=== PATIENT | female | born 1985 | race American Indian/Alaskan Native ===

== ENCOUNTER 2019-09-29 12:36 | Emergency (ER) | payer SELFPAY ==
--- NOTE | 2019-09-29 13:00 | Event Note ---
ED Screening Note ED Screening Note: 34 yo female who is 6 weeks presents with lightheadedness, chest pain and shortness of breath. This initial assessment/diagnostic orders/clinical plan/treatment(s) is/are subject to change based on patients health status, clinical progression and re- assessment by fellow clinical providers in the ED. Further treatment and workup at subsequent clinical providers discretion. Patient/guardian urged not to elope from the ED as their condition may be serious if not clinically assessed and managed. Initial orders include: ekg labs CXR v/q scan
--- NOTE | 2019-09-29 13:35 | XRay Report ---
CHEST 2 VIEWS INDICATION: chest pain shortness of breath. COMPARISON: Chest x-ray from 01/23/2015 FINDINGS: Support devices: None. Heart: Within normal limits. Lungs/pleura: No acute air space or interstitial disease. No pneumothorax. Additional findings: None. IMPRESSION: 1. No acute findings. Signer Name: Tyler Leary MD Signed: 09/29/2019 1:30 PM Workstation Name: [id number]
[2019-09-29 13:44] LABS: Basophils % (Auto) 0.6 % (0.0-1.8); Eosinophils # (Auto) 0.1 K/mm3 (0.0-0.4); Eosinophils % (Auto) 1.9 % (0.0-4.3); Hemoglobin 11.3 gm/dl (10.1-14.3); Lymphocytes % (Auto) 17.8 % (13.4-35.0); Mean Corpuscular HGB Conc 32 % (30-34); Mean Corpuscular Volume 71 fl (79-97); Monocytes # (Auto) 0.5 K/mm3 (0.0-0.8); Monocytes % (Auto) 9.3 % (0.0-7.3); Platelet Count 236 K/mm3 (140-440); Red Blood Count 4.95 M/mm3 (3.65-5.03); Red Cell Distribution Width 14.6 % (13.2-15.2)
[2019-09-29 14:24] LABS: BUN/Creatinine Ratio 12; Blood Urea Nitrogen 11 mg/dL (7-17); Calcium 9.4 mg/dL (8.4-10.2); Hemolysis Index 8
--- NOTE | 2019-09-29 15:16 | Nuclear Medicine Report ---
PERFUSION PULMONARY SCINTIGRAPHY HISTORY: , chest pain, shortness of breath COMPARISON: 09/29/2019 chest radiograph. TECHNIQUE: Tc-99m-MAA was then injected. Only perfusion images were obtained at the request of the or dering clinician. RADIOPHARMACEUTICAL: 3.5 mCi of Tc-99m-MAA injected FINDINGS: Perfusion images show no photopenic defect to suggest the presence of pulmonary embolism. IMPRESSION: Low probability for pulmonary embolism. Signer Name: Rome Heaton MD Signed: 09/29/2019 3:11 PM Workstation Name: [id number]
--- NOTE | 2019-09-29 18:01 | Emergency Department Report ---
ED Chest Pain HPI - General Chief Complaint: Chest Pain Stated Complaint: CHEST PAIN, SOB UPPER SHOULDER PAIN Time Seen by Provider: 09/29/19 17:51 Source: patient Mode of arrival: Ambulatory Limitations: No Limitations - History of Present Illness Initial Comments: Patient is a 34-year-old female that presents to the emergency room with complaints of chest pain, shortness of breath and dizziness. Patient states her symptoms started last night approximately 8 PM. Patient states her symptoms are intermittent. Patient states that her symptoms are worse after eating. Patient states she also has a history of anxiety. Patient states her chest pain has resolved at this point. Patient states when she was in triage was a 4 out of 10. Patient states she is not having any pain or symptoms at this time. Patient states her dizziness is resolved patient states shortness of breath at all. Patient states that her symptoms are better with rest and worse with movement and eating. Patient states she is 6 weeks . 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 Patient states she is a A0. Patient states she had preeclampsia with her previous . Patient states she also history of hypertension she is taking labetalol. Patient states her blood pressure is controlled with labetalol. Patient states that she has no problems taking labetalol. MD Complaint: chest pain -: Sudden Onset: after eating Severity scale (0 -10): 0 Quality: heaviness Consistency: now resolved Improves With: rest Worsens With: eating, movement Context: other re: denies: nausea, vomting, diaphoresis, dyspnea, sense of impending doom Other Symptoms: acid taste in mouth, burping. denies: cough, fever, syncope, rash, leg swelling, palpitations Treatments Prior to Arrival: none Aspirin use within the Past 7 Days: (0) No - Related Data On Oral Contraceptives: No Home Medications Medication Instructions Recorded Confirmed Last Taken Valacyclovir HCl [Valtrex] 1 tab PO QDAY 01/16/15 01/23/15 01/16/15 10:00 Previous Rx's Medication Instructions Recorded Last Taken Type Acetaminophen/Codeine [Tylenol #3] 1 tab PO Q4HR PRN #30 tablet 01/18/15 01/23/15 Rx Ferrous Sulfate [Feosol 325 MG tab] 325 mg PO BID #60 tablet 01/18/15 01/23/15 Rx Ibuprofen [Motrin 600 MG tab] 600 mg PO Q6HR PRN #30 tablet 01/18/15 Unknown Rx labetaloL [Labetalol 200mg TAB] 200 mg PO BID #60 tablet 01/25/15 Unknown Rx Famotidine [Pepcid] 20 mg PO BID #20 tablet 09/29/19 Unknown Rx Allergies Allergy/AdvReac Type Severity Reaction Status Date / Time No Known Allergies Allergy Verified 01/17/15 00:14 Heart Score - HEART Score History: Slightly suspicious EKG: Normal Age: < 45 Risk factors: No known risk factors Troponin: < normal limit HEART Score: 0 ED Review of Systems ROS: Stated complaint: CHEST PAIN, SOB UPPER SHOULDER PAIN Other details as noted in HPI Constitutional: denies: chills, fever Eyes: denies: eye pain, eye discharge, vision change ENT: denies: ear pain, throat pain Respiratory: shortness of breath. denies: cough, wheezing Cardiovascular: chest pain. denies: palpitations Endocrine: no symptoms reported Gastrointestinal: denies: abdominal pain, nausea, diarrhea Genitourinary: denies: urgency, dysuria, discharge Musculoskeletal: denies: back pain, joint swelling, arthralgia Skin: denies: rash, lesions Neurological: denies: headache, weakness, paresthesias Psychiatric: denies: anxiety, depression Hematological/Lymphatic: denies: easy bleeding, easy bruising ED Past Medical Hx - Past Medical History Previous Medical History?: Yes Hx Hypertension: Yes Hx Congestive Heart Failure: No Hx Diabetes: No Hx Deep Vein Thrombosis: No Hx Renal Disease: No Hx Sickle Cell Disease: No Hx Seizures: No Hx Asthma: No Hx COPD: No Hx HIV: No - Surgical History Past Surgical History?: No - Family History Family history: no significant - Social History Smoking Status: Never Smoker Substance Use Type: Alcohol - Medications Home Medications: Home Medications Medication Instructions Recorded Confirmed Last Taken Type Valacyclovir HCl [Valtrex] 1 tab PO QDAY 01/16/15 01/23/15 01/16/15 10:00 History Acetaminophen/Codeine [Tylenol #3] 1 tab PO Q4HR PRN #30 tablet 01/18/15 01/23/15 01/23/15 Rx Ferrous Sulfate [Feosol 325 MG tab] 325 mg PO BID #60 tablet 01/18/15 01/23/15 01/23/15 Rx Ibuprofen [Motrin 600 MG tab] 600 mg PO Q6HR PRN #30 tablet 01/18/15 01/23/15 Unknown Rx labetaloL [Labetalol 200mg TAB] 200 mg PO BID #60 tablet 01/25/15 Unknown Rx Famotidine [Pepcid] 20 mg PO BID #20 tablet 09/29/19 Unknown Rx ED Physical Exam - General Limitations: No Limitations General appearance: alert, in no apparent distress - Head Head exam: Present: atraumatic, normocephalic - Eye Eye exam: Present: normal appearance - ENT ENT exam: Present: mucous membranes moist - Neck Neck exam: Present: normal inspection - Respiratory Respiratory exam: Present: normal lung sounds bilaterally. Absent: respiratory distress, wheezes, rales, rhonchi, stridor, chest wall tenderness, accessory muscle use - Cardiovascular Cardiovascular Exam: Present: regular rate, normal rhythm. Absent: systolic murmur, diastolic murmur, rubs, gallop - GI/Abdominal GI/Abdominal exam: Present: soft, normal bowel sounds - Extremities Exam Extremities exam: Present: normal inspection - Back Exam Back exam: Present: normal inspection - Neurological Exam Neurological exam: Present: alert, oriented X3 - Psychiatric Psychiatric exam: Present: normal affect, normal mood - Skin Skin exam: Present: warm, dry, intact, normal color. Absent: rash ED Course Vital Signs 09/29/19 09/29/19 12:56 18:58 Temperature 98.6 F Pulse Rate 70 73 Respiratory 18 19 Rate Blood Pressure 135/95 Blood Pressure 137/101 [Left] O2 Sat by Pulse 99 100 Oximetry - Reevaluation(s) Reevaluation #1: Discussed all results the patient. Discussed plan of care outpatient. Patient agrees with plan of care. Patient is stable for discharge patient was discharged home. Patient given discharge instructions. Patient voiced understanding of discharge instructions. 09/29/19 18:07 NATALIYA score - Nataliya Score Age > 65: (0) No Aspirin use within the Past 7 Days: (0) No 3 or more CAD Risk Factors: (0) No 2 or more Angina events in past 24 hrs: (0) No Known CAD with more than 50% Stenosis: (0) No Elevated Cardiac Markers: (0) No ST Deviation Greater than 0.5mm: (0) No NATALIYA Score: 0 ED Medical Decision Making - Lab Data Result diagrams: 09/29/19 13:24 01/29/20 13:24 - EKG Data -: EKG Interpreted by Me EKG shows normal: sinus rhythm, axis, intervals, QRS complexes, ST-T waves Rate: normal - Radiology Data Radiology results: report reviewed, image reviewed interpreted by me: CHEST 2 VIEWS 1. No acute abnormality of the chest. PERFUSION PULMONARY SCINTIGRAPHY HISTORY: , chest pain, shortness of breath COMPARISON: 09/29/2019 chest radiograph. TECHNIQUE: Tc-99m-MAA was then injected. Only perfusion images were obtained at the request of the ordering clinician. RADIOPHARMACEUTICAL: 3.5 mCi of Tc-99m-MAA injected FINDINGS: Perfusion images show no photopenic defect to suggest the presence of pulmonary embolism. IMPRESSION: Low probability for pulmonary embolism. - Medical Decision Making Patient is a 34-year-old female Emergency with complaints of chest pain or sh ortness of breath and dizziness. Patient had a PE study and was negative. Patient had chest x-ray which shows no acute findings. Patient's symptoms are consistent with gastritis since her symptoms are present after eating.. Patient's labs unremarkable. Patient instructed to a vitamin. Patient struck the follow up with her primary care and her [employer] PIECE REPAIRER. Patient stable for discharge impression be discharged home. - Differential Diagnosis gastritis, anxiety, chest pain, shortness of breath, PE Critical care attestation.: If time is entered above; I have spent that time in minutes in the direct care of this critically ill patient, excluding procedure time. ED Disposition Clinical Impression: Shortness of breath, Dizziness, GERD without esophagitis Chest pain Qualifiers: Chest pain type: unspecified Qualified Code(s): R07.9 - Chest pain, unspecified Disposition: DC-01 TO HOME OR SELFCARE Is pt being admited?: No Does the pt Need Aspirin: No Condition: Stable Instructions: Chest Pain (ED), Morning Sickness (ED), (ED), Diet for Ulcers and Gastritis (ED), Gastroesophageal Reflux Disease (ED) Additional Instructions: Patient to follow up with primary care in 2-3 days. Patient to follow up with [employer] PIECE REPAIRER in 2-3 days. Patient to return to your condition worsens, changes or new symptoms arise. Patient to increase water. Patient to rest. Patient to take a vitamin. Patient to continue her blood pressure medications. Patient to eat a reflux diet. Prescriptions: Famotidine [Pepcid] 20 mg PO BID #20 tablet Referrals: NICHOLAS ARTHUR MD [Primary Care Provider] - 3-5 Days Time of Disposition: 18:39
[2019-09-29 19:04] VITALS: BP 137/101
== END 2019-09-29 19:14 | disposition home or self-care (01) ==
LOC: ED 12:36
DX: R06.02 Shortness of breath (principal); R42 Dizziness and giddiness; K21.9 Gastro-esophageal reflux disease without esophagitis; R07.89 Other chest pain; I10 Essential (primary) hypertension; Z79.1 Long term (current) use of non-steroidal anti-inflammatories (NSAID); Z79.899 Other long term (current) drug therapy
CPT/HCPCS: 36415; 71046; 78580; 80048; 85025; 93005; 93010; 99284; A9540

== ENCOUNTER 2020-03-22 15:21 | Outpatient (CLI) | payer OTHER ==
[2020-03-22] MEDS ORDERED: LACTATED RINGERS 500 ML IV ONE (15:47)
[2020-03-22 15:52] VITALS: BP 114/72
[2020-03-22 16:53] LABS: Bacteria,Urine 1+ /HPF (Negative); Bilirubin,Urine NEG (Negative); Blood,Urine NEG (Negative); Color,Urine Yellow (Yellow); Mucus,Urine FEW /HPF; Protein,Urine <15 mg/dL mg/dL (Negative); Urobilinogen,Urine < 2.0 mg/dL (<2.0)
== END 2020-03-22 16:39 | disposition home or self-care (01) ==
LOC: TRG 15:21 → APU 15:22 → TRG 16:39
PROVIDERS: ATTEND Obstetrics & Gynecology
DX: O26.893 Other specified pregnancy related conditions, third trimester (principal); M79.602 Pain in left arm; Z3A.31 31 weeks gestation of pregnancy
CPT/HCPCS: 59025; 81001; 87086

== ENCOUNTER 2020-05-01 00:31 | Outpatient (CLI) | payer OTHER ==
[2020-05-01 01:27] VITALS: BP 130/79
== END 2020-05-01 01:50 | disposition home or self-care (01) ==
LOC: TRG 00:31 → APU 00:32 → TRG 01:50
PROVIDERS: ATTEND Obstetrics & Gynecology
DX: O26.853 Spotting complicating pregnancy, third trimester (principal); Z3A.37 37 weeks gestation of pregnancy
CPT/HCPCS: 59025

== ENCOUNTER 2020-05-18 17:35 | Observation (INO) | payer OTHER ==
[2020-05-18] MEDS ORDERED: hydrALAZINE 25 MG TAB PO ONE (18:25)
--- NOTE | 2020-05-18 18:45 | Emergency Department Report ---
ED General Adult HPI - General Chief complaint: High BP Stated complaint: HIGH BLOOD PRESSURE PUI?: No Time Seen by Provider: 05/18/20 18:15 Source: patient Mode of arrival: Ambulatory Limitations: No Limitations - History of Present Illness Initial comments: Patient is 34 years old female 2 para 2, 2 weeks after normal spontaneous vaginal delivery. Patient developed preeclampsia and treated with magnesium sulfate. Patient presented to the ER complaining of high blood pressure and headache. Patient reported history of preeclampsia with her first baby. Patient stated that she has been taking labetalol with no help. She stated that she saw her OB doctor yesterday and they increased her labetalol to 200 mg. Patient denied any focal weakness, numbness or tingling sensation. No seizure activity so far. Patient also denied any fever, chills, chest pain, abdominal pain, nausea or vomiting. Severity scale (0 -10): 0 - Related Data Home Medications Medication Instructions Recorded Confirmed Last Taken Valacyclovir HCl [Valtrex] 1 tab PO QDAY 01/16/15 05/04/20 1 Day Ago ~04/30/20 Aspirin [Adult Aspirin] 1 tab PO DAILY 05/01/20 05/04/20 2 Days Ago ~05/02/20 Famotidine [Pepcid] 20 mg PO BID 05/01/20 05/04/20 2 Days Ago ~05/02/20 Previous Rx's Medication Instructions Recorded Last Taken Type Ferrous Sulfate [Feosol 325 MG tab] 325 mg PO BID #60 tablet 01/18/15 1 Day Ago Rx ~04/30/20 labetaloL [Labetalol 200mg TAB] 200 mg PO BID #60 tablet 01/25/15 2 Days Ago Rx ~04/29/20 Ibuprofen [Motrin] 600 mg PO Q6H PRN #60 tablet 05/04/20 Unknown Rx labetaloL [Labetalol 200mg TAB] 200 mg PO BID #60 tablet 05/04/20 Unknown Rx Allergies Allergy/AdvReac Type Severity Reaction Status Date / Time No Known Allergies Allergy Verified 05/18/20 17:40 ED Review of Systems ROS: Stated complaint: HIGH BLOOD PRESSURE Other details as noted in HPI Comment: All other systems reviewed and negative Respiratory: denies: cough, shortness of breath, SOB with exertion, SOB at rest Cardiovascular: denies: chest pain, palpitations, dyspnea on exertion Gastrointestinal: denies: abdominal pain, nausea, vomiting Musculoskeletal: denies: back pain Neurological: headache. denies: weakness Psychiatric: denies: depression ED Past Medical Hx - Past Medical History Hx Hypertension: Yes Hx Congestive Heart Failure: No Hx Diabetes: No Hx Deep Vein Thrombosis: No Hx Renal Disease: No Hx Sickle Cell Disease: No Hx Seizures: No Hx Asthma: No Hx COPD: No Hx HIV: No - Social History Smoking Status: Never Smoker Substance Use Type: None - Medications Home Medications: Home Medications Medication Instructions Recorded Confirmed Last Taken Type Valacyclovir HCl [Valtrex] 1 tab PO QDAY 01/16/15 05/04/20 1 Day Ago History ~04/30/20 Ferrous Sulfate [Feosol 325 MG tab] 325 mg PO BID #60 tablet 01/18/15 05/04/20 1 Day Ago Rx ~04/30/20 labetaloL [Labetalol 200mg TAB] 200 mg PO BID #60 tablet 01/25/15 05/04/20 2 Days Ago Rx ~04/29/20 Aspirin [Adult Aspirin] 1 tab PO DAILY 05/01/20 05/04/20 2 Days Ago History ~05/02/20 Famotidine [Pepcid] 20 mg PO BID 05/01/20 05/04/20 2 Days Ago History ~05/02/20 Ibuprofen [Motrin] 600 mg PO Q6H PRN #60 tablet 05/04/20 Unknown Rx labetaloL [Labetalol 200mg TAB] 200 mg PO BID #60 tablet 05/04/20 Unknown Rx ED Physical Exam - General Limitations: No Limitations General appearance: alert, in no apparent distress - Head Head exam: Present: atraumatic, normocephalic, normal inspection - Eye Eye exam: Present: normal appearance - ENT ENT exam: Present: normal exam, normal orophraynx, mucous membranes moist - Neck Neck exam: Present: normal inspection, full ROM. Absent: tenderness, meningismu s - Respiratory Respiratory exam: Present: normal lung sounds bilaterally. Absent: respiratory distress, wheezes, rales, rhonchi, stridor, chest wall tenderness, accessory muscle use, decreased breath sounds, prolonged expiratory - Cardiovascular Cardiovascular Exam: Present: regular rate, normal rhythm, normal heart sounds - GI/Abdominal GI/Abdominal exam: Present: soft, normal bowel sounds. Absent: distended, tenderness, guarding, rebound, rigid, organomegaly, mass, bruit, pulsatile mass, hernia - Extremities Exam Extremities exam: Present: normal inspection, full ROM, normal capillary refill. Absent: pedal edema, calf tenderness - Back Exam Back exam: Present: normal inspection, full ROM. Absent: CVA tenderness (R), CVA tenderness (L) - Neurological Exam Neurological exam: Present: alert, oriented X3, CN II-XII intact, normal gait, reflexes normal. Absent: motor sensory deficit - Psychiatric Psychiatric exam: Present: normal mood. Absent: depressed - Skin Skin exam: Present: warm, intact, normal color ED Course Vital Signs 05/18/20 05/18/20 05/18/20 17:44 18:22 18:29 Temperature 98.1 F Pulse Rate 65 Respiratory 18 14 18 Rate Blood Pressure Blood Pressure 174/112 [Right] O2 Sat by Pulse 100 99 100 Oximetry 05/18/20 05/18/20 05/18/20 18:31 18:40 18:45 Temperature Pulse Rate 71 89 72 Respiratory 26 H 38 H Rate Blood Pressure 155/102 189/112 155/102 Blood Pressure [Right] O2 Sat by Pulse 99 100 Oximetry 05/18/20 19:01 Temperature Pulse Rate 74 Respiratory 27 H Rate Blood Pressure 154/99 Blood Pressure [Right] O2 Sat by Pulse 98 Oximetry - Reevaluation(s) Reevaluation #1: 05/18/20 20:25 Patient blood pressure improved after labetalol and hydralazine. I discussed the patient with nurse practitioner Glenys who on-call for Dr. Saint Vivas. She stated that 2 do a blood pressure check every 5 minutes for the next 30 minutes and to call them back with the results to decide if the patient need to be admitted or not. ED Medical Decision Making - Lab Data Result diagrams: 05/18/20 18:41 05/18/20 18:41 - Medical Decision Making Patient is 34 years old female 2 para 2, 2 weeks after normal spontaneous vaginal delivery. Patient developed preeclampsia and treated with magnesium sulfate. Patient presented to the ER complaining of high blood pre ssure and headache. Patient reported history of preeclampsia with her first baby. Patient stated that she has been taking labetalol with no help. She stated that she saw her OB doctor yesterday and they increased her labetalol to 200 mg. Patient denied any focal weakness, numbness or tingling sensation. No seizure activity so far. Patient also denied any fever, chills, chest pain, abdominal pain, nausea or vomiting. Labs reviewed and is unremarkable except for elevated LDH. Patient will be admitted to labor and delivery for preeclampsia. Nurse practitioner Glenys with Dr. Lawson accepted the patient to be admitted. Critical Care Time: Yes Critical care time in (mins) excluding proc time.: 30 Critical care attestation.: If time is entered above; I have spent that time in minutes in the direct care of this critically ill patient, excluding procedure time. ED Disposition Clinical Impression: Preeclampsia Disposition: DC09 OP ADMIT IP TO THIS HOSP Is pt being admited?: Yes Condition: Stable Instructions: Hypertension (ED) Referrals: YUMIKO GAMEZ MD [Primary Care Provider] - 3-5 Days
[2020-05-18 19:07] LABS: Basophils % (Auto) 0.5 % (0.0-1.8); Eosinophils # (Auto) 0.3 K/mm3 (0.0-0.4); Hematocrit 32.6 % (30.3-42.9); Hemoglobin 10.3 gm/dl (10.1-14.3); Lymphocytes # (Auto) 0.9 K/mm3 (1.2-5.4); Lymphocytes % (Auto) 21.5 % (13.4-35.0); Mean Corpuscular HGB Conc 32 % (30-34); Mean Corpuscular Volume 74 fl (79-97); Monocytes # (Auto) 0.5 K/mm3 (0.0-0.8); Monocytes % (Auto) 10.6 % (0.0-7.3); Platelet Count 311 K/mm3 (140-440); Red Blood Count 4.41 M/mm3 (3.65-5.03); Red Cell Distribution Width 15.2 % (13.2-15.2)
[2020-05-18 19:15] LABS: INR 1.04 (0.87-1.13)
[2020-05-18 19:29] LABS: Alanine Aminotransferase 18 units/L (7-56); Albumin 3.5 g/dL (3.9-5); BUN/Creatinine Ratio 13; Blood Urea Nitrogen 10 mg/dL (7-17); Hemolysis Index 9
[2020-05-18 19:30] LABS: Bilirubin,Direct < 0.2 mg/dL (0-0.2)
[2020-05-18 19:32] LABS: Bilirubin,Urine NEG (Negative); Blood,Urine LG (Negative); Color,Urine Yellow (Yellow); Mucus,Urine FEW /HPF; Protein,Urine <15 mg/dL mg/dL (Negative); Urobilinogen,Urine < 2.0 mg/dL (<2.0)
[2020-05-18] MEDS ORDERED: MAGNESIUM SULFATE 4 GM/100 ML BAG IV ONE (20:56)
[2020-05-18] MEDS ORDERED: hydrALAZINE 20 MG/1 ML INJ IV PRN (20:56)
[2020-05-18] MEDS ORDERED: CALCIUM GLUCONATE 1000 MG/10 ML INJ IV ONE (20:56)
[2020-05-18] MEDS ORDERED: MAGNESIUM SULFATE 40GM/1000ML 40 GM/1,000 ML BAG IV SCH (21:00)
[2020-05-18] MEDS ORDERED: LACTATED RINGERS 1,000 ML IV SCH (21:00)
--- NOTE | 2020-05-18 22:02 | History and Physical Report ---
History of Present Illness Date of examination: 05/18/20 Date of admission: 05/18/20 20:56 Chief complaint: Headache, elevated BP History of present illness: Pt is a 34 yo at 2 weeks s/p vaginal delivery complicated by chronic hypertension with superimposed preeclampsia. She received magnesium sulfate x24 hours after delivery. She presented to the ED tonight reporting headache, and was found to have severe range BP. 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 She denies scotomata, RUQ pain, or face/arm swelling. Past History Past Medical History: hypertension - Obstetrical History : 3 Para: 2 Hx # Term Pregnancies: 2 Induced : 1 Number of Living Children: 2 Medications and Allergies Allergies Allergy/AdvReac Type Severity Reaction Status Date / Time No Known Allergies Allergy Verified 05/18/20 17:40 Home Medications Medication Instructions Recorded Confirmed Last Taken Type labetaloL [Labetalol 200mg TAB] 200 mg PO BID #60 tablet 05/04/20 05/18/20 Unknown Rx Active Meds: Active Medications Hydralazine HCl (Apresoline) 5 mg IV Q30MIN PRN PRN Reason: Hypertension Lactated Ringer's (Lactated Ringers) 1,000 mls @ 125 mls/hr IV DIRECT ALEXX Magnesium Sulfate (Magnesium Sulfate 40gm/1000ml) 40 gm in 1,000 mls @ 50 mls/hr IV DIRECT ALEXX Review of Systems All systems: negative Eyes: no blurred vision Cardiovascular: no chest pain, no edema, no shortness of breath Breasts: deferred, (pt desires to pump) Gastrointestinal: no abdominal pain, no nausea Genitourinary: no vaginal bleeding Neurological: headaches - Vital Signs Vital signs: Vital Signs Temp Pulse Resp BP Pulse Ox 98.1 F 65 18 174/112 100 05/18/20 17:44 05/18/20 17:44 05/18/20 17:44 05/18/20 17:44 05/18/20 17:44 Temp Pulse Resp BP Pulse Ox 98.1 F 76 36 H 167/107 98 05/18/20 17:44 05/18/20 20:25 05/18/20 20:50 05/18/20 20:50 05/18/20 20:50 - Physical Exam Lungs: Positive: Normal air movement Abdomen: Positive: soft. Negative: distention Uterus: Positive: other (fundus 1fb above umbilicus) Extremities: Positive: normal Results Result Diagrams: 05/18/20 18:41 05/18/20 18:41 Abnormal lab results 05/18/20 05/18/20 05/18/20 Range/Units 18:41 18:41 19:01 WBC 4.3 L (4.5-11.0) K/mm3 MCV 74 L (79-97) fl MCH 23 L (28-32) pg Mclennan % (Auto) 10.6 H (0.0-7.3) % Eos % (Auto) 7.0 H (0.0-4.3) % Lymph # 0.9 L (1.2-5.4) K/mm3 Lactate Dehydrogenase 275 H (91-180) units/L Albumin 3.5 L (3.9-5) g/dL Urine WBC (Auto) 10.0 H (0.0-6.0) /HPF All other labs normal. Assessment and Plan A: 34 yo at 2 weeks Chronic hypertension with superimposed preeclampsia with severe features Breast feeding P: Admit to L&D unit Magnesium sulfate x24 hours Labetalol IV PRN for severe range BP (Hydralazine not in stock) Labetalol 300mg PO BID Pump breasts q2-3 hours Closely monitor clinical status
--- NOTE | 2020-05-19 17:04 | Progress Note ---
Assessment and Plan A: Readmission for chronic hypertension with superimposed preeclampsia, s/p on 05/02/20; on Magnesium sulfate for seizure prophylaxis Obesity P: Continue IV magnesium for 24 hours, and then observe blood pressures overnight Subjective - Subjective Date of service: 05/19/20 Principal diagnosis: Chronic HTN with superimposed preeclampsia Interval history: Pt without complaints. No headache presently. Patient reports: appetite normal, no voiding normally (burleson in place ) Objective - Vital Signs Latest vital signs: Vital Signs Temp Pulse Resp BP BP Pulse Ox 05/19/20 17:01 74 92/54 98 05/19/20 16:56 84 98 05/19/20 16:51 82 97 05/19/20 16:46 87 98 05/19/20 16:41 83 98 05/19/20 16:36 82 97 05/19/20 16:31 90 99 05/19/20 16:26 82 98 05/19/20 16:21 83 97 05/19/20 16:16 85 99 05/19/20 16:11 90 100 05/19/20 16:06 83 99 05/19/20 16:01 84 99 05/19/20 15:56 84 100 05/19/20 15:51 77 98 05/19/20 15:46 75 98 05/19/20 15:44 92 H 92 05/19/20 15:41 88 97 05/19/20 15:36 79 98 05/19/20 15:31 74 98 05/19/20 15:26 75 98 05/19/20 15:21 75 99 05/19/20 15:16 76 100 05/19/20 15:11 77 98 05/19/20 15:06 81 98 05/19/20 15:01 78 116/66 100 05/19/20 14:56 80 98 05/19/20 14:51 77 100 05/19/20 14:46 96 H 100 05/19/20 14:41 89 100 05/19/20 14:36 95 H 99 05/19/20 14:31 94 H 100 05/19/20 14:26 95 H 100 05/19/20 14:21 72 100 05/19/20 14:16 74 100 05/19/20 14:11 73 99 05/19/20 14:06 72 100 05/19/20 14:01 69 135/79 99 09/18/20 13:56 76 98 09/18/20 13:51 64 99 09/18/20 13:46 68 99 09/18/20 13:41 73 100 09/18/20 13:36 69 99 09/18/20 13:31 70 100 09/18/20 13:26 66 100 09/18/20 13:21 73 99 09/18/20 13:16 72 98 09/18/20 13:11 77 98 09/18/20 13:06 76 99 09/18/20 13:01 71 125/92 100 09/18/20 12:56 74 99 09/18/20 12:51 88 99 09/18/20 12:46 76 100 09/18/20 12:41 73 99 09/18/20 12:36 79 98 09/18/20 12:31 70 99 09/18/20 12:26 77 99 09/18/20 12:21 70 99 09/18/20 12:16 69 99 09/18/20 12:11 70 99 09/18/20 12:06 70 98 09/18/20 12:01 79 136/94 100 09/18/20 11:56 91 H 97 09/18/20 11:51 74 98 09/18/20 11:46 72 98 09/18/20 11:41 69 99 09/18/20 11:36 74 99 09/18/20 11:31 81 99 09/18/20 11:26 72 100 09/18/20 11:21 77 99 09/18/20 11:16 76 99 09/18/20 11:11 75 100 09/18/20 11:06 76 99 09/18/20 11:01 90 102/62 99 09/18/20 10:56 73 99 09/18/20 10:51 69 99 09/18/20 10:46 73 98 09/18/20 10:41 74 98 09/18/20 10:36 75 99 09/18/20 10:31 76 100 09/18/20 10:26 70 100 09/18/20 10:21 76 99 09/18/20 10:16 76 100 09/18/20 10:11 75 99 09/18/20 10:06 80 100 09/18/20 10:01 88 122/61 99 09/18/20 10:00 80 138/83 09/18/20 09:56 85 99 09/18/20 09:51 77 100 09/18/20 09:46 75 99 09/18/20 09:41 73 99 09/18/20 09:36 67 99 09/18/20 09:31 71 99 09/18/20 09:26 68 98 09/18/20 09:21 68 99 09/18/20 09:16 69 100 09/18/20 09:11 79 99 09/18/20 09:06 71 99 09/18/20 09:01 70 138/83 100 09/18/20 08:56 76 99 09/18/20 08:51 71 99 09/18/20 08:46 77 99 09/18/20 08:41 74 99 09/18/20 08:36 76 99 09/18/20 08:31 80 99 09/18/20 08:26 81 100 09/18/20 08:21 68 99 09/18/20 08:16 68 99 09/18/20 08:11 69 99 09/18/20 08:06 68 100 09/18/20 08:01 66 147/91 100 09/18/20 07:56 68 99 09/18/20 07:51 80 99 09/18/20 07:46 72 99 09/18/20 07:41 75 100 09/18/20 07:36 70 100 09/18/20 07:31 71 100 09/18/20 07:26 79 100 09/18/20 07:21 84 100 09/18/20 07:16 74 98 09/18/20 07:11 70 99 09/18/20 07:06 77 98 09/18/20 07:01 73 121/69 98 09/18/20 06:56 76 98 09/18/20 06:51 76 97 09/18/20 06:46 71 97 09/18/20 06:41 79 97 09/18/20 06:36 79 98 09/18/20 06:31 78 99 09/18/20 06:26 76 99 09/18/20 06:21 76 99 09/18/20 06:16 73 99 09/18/20 06:11 74 99 09/18/20 06:06 67 100 09/18/20 06:01 64 121/73 99 09/18/20 05:56 69 99 09/18/20 05:51 67 99 09/18/20 05:46 68 99 09/18/20 05:41 72 98 09/18/20 05:36 71 99 09/18/20 05:31 73 98 09/18/20 05:26 67 99 09/18/20 05:21 81 97 09/18/20 05:16 78 99 09/18/20 05:11 70 99 09/18/20 05:06 66 99 09/18/20 05:01 65 133/83 99 09/18/20 04:56 64 99 09/18/20 04:51 66 99 09/18/20 04:46 81 98 09/18/20 04:41 68 99 09/18/20 04:36 68 99 09/18/20 04:31 66 99 09/18/20 04:26 68 99 09/18/20 04:21 66 99 09/18/20 04:16 67 99 09/18/20 04:11 66 98 09/18/20 04:06 67 99 09/18/20 04:02 68 130/77 09/18/20 04:01 66 99 09/18/20 03:56 67 98 09/18/20 03:51 68 99 09/18/20 03:46 68 98 09/18/20 03:41 74 99 09/18/20 03:36 73 98 09/18/20 03:31 84 98 09/18/20 03:26 77 98 09/18/20 03:21 74 98 09/18/20 03:16 67 99 09/18/20 03:11 70 97 09/18/20 03:06 70 97 09/18/20 03:01 69 128/84 96 09/18/20 02:56 77 98 09/18/20 02:51 69 98 09/18/20 02:46 69 98 09/18/20 02:41 69 97 09/18/20 02:36 69 98 09/18/20 02:31 68 97 09/18/20 02:26 65 97 09/18/20 02:21 65 99 09/18/20 02:16 80 97 09/18/20 02:11 69 96 09/18/20 02:06 69 99 09/18/20 02:01 70 121/80 98 09/18/20 01:56 69 100 18/20 01:51 70 100 1820 01:46 80 98 1820 01:41 70 98 05/19/20 01:36 80 99 05/19/20 01:31 67 99 20 01:26 69 99 05/19/20 01:21 70 100 05/19/20 01:16 72 100 05/19/20 01:11 72 99 05/19/20 01:10 75 94 05/19/20 01:06 70 100 05/19/20 01:02 70 148/76 05/19/20 01:01 73 99 05/19/20 00:56 67 100 05/19/20 00:51 65 99 05/19/20 00:46 68 100 05/19/20 00:41 74 99 05/19/20 00:36 73 100 05/19/20 00:31 86 100 05/19/20 00:26 86 100 05/19/20 00:21 89 98 05/19/20 00:16 75 98 05/19/20 00:11 63 99 05/19/20 00:06 63 99 05/19/20 00:01 69 180/99 99 05/18/20 23:56 65 100 05/18/20 23:51 72 99 05/18/20 23:46 67 100 05/18/20 23:41 63 100 05/18/20 23:36 64 100 05/18/20 23:31 59 L 99 05/18/20 23:28 98.5 F 62 18 168/100 05/18/20 23:26 66 99 05/18/20 23:25 61 168/100 05/18/20 23:21 60 100 05/18/20 23:20 59 L 170/94 05/18/20 23:16 70 100 05/18/20 23:11 67 100 05/18/20 23:10 65 160/104 05/18/20 23:09 62 160/104 05/18/20 23:06 65 99 05/18/20 23:01 64 99 05/18/20 22:56 64 99 05/18/20 22:51 66 100 05/18/20 22:50 61 161/108 05/18/20 22:47 59 L 172/109 05/18/20 22:46 66 100 05/18/20 22:45 59 L 172/109 05/18/20 22:41 61 100 05/18/20 22:40 63 165/108 05/18/20 22:36 58 L 100 05/18/20 22:31 63 98 05/18/20 22:26 65 99 05/18/20 22:21 69 99 05/18/20 22:16 66 99 05/18/20 22:11 65 166/109 100 05/18/20 20:50 36 H 167/107 98 05/18/20 20:45 37 H 170/102 100 05/18/20 20:40 33 H 165/104 99 05/18/20 20:35 38 H 165/112 99 05/18/20 20:30 33 H 164/108 100 05/18/20 20:25 76 36 H 154/100 100 05/18/20 19:45 62 10 L 154/99 100 05/18/20 19:01 74 27 H 154/99 98 05/18/20 18:45 72 38 H 155/102 100 05/18/20 18:40 89 189/112 05/18/20 18:31 71 26 H 155/102 99 05/18/20 18:29 18 100 05/18/20 18:22 14 99 05/18/20 17:44 98.1 F 65 18 174/112 100 Intake and Output 05/19/20 05/19/20 05/19/20 06:59 14:59 22:59 Intake Total 20 450 Output Total 400 250 Balance -380 200 Intake: IV 20 Right Antecubital 20 Oral 450 Output: Urine 400 250 Indwelling Catheter 400 250 Other: Total, Intake Amount 450 Total, Output Amount 200 250 - Exam Breasts: Present: deferred Abdomen: Present: soft Uterus: Present: fundal height below umbilicus Extremities: Present: edema (trace ) - Labs Labs: Abnormal lab results 05/18/20 05/18/20 05/18/20 Range/Units 18:41 18:41 19:01 WBC 4.3 L (4.5-11.0) K/mm3 MCV 74 L (79-97) fl MCH 23 L (28-32) pg Jewell % (Auto) 10.6 H (0.0-7.3) % Eos % (Auto) 7.0 H (0.0-4.3) % Lymph # 0.9 L (1.2-5.4) K/mm3 Magnesium (1.7-2.3) mg/dL Lactate Dehydrogenase 275 H (91-180) units/L Albumin 3.5 L (3.9-5) g/dL Urine WBC (Auto) 10.0 H (0.0-6.0) /HPF 05/19/20 Range/Units 05:22 WBC (4.5-11.0) K/mm3 MCV (79-97) fl MCH (28-32) pg Jewell % (Auto) (0.0-7.3) % Eos % (Auto) (0.0-4.3) % Lymph # (1.2-5.4) K/mm3 Magnesium 5.00 H (1.7-2.3) mg/dL Lactate Dehydrogenase (91-180) units/L Albumin (3.9-5) g/dL Urine WBC (Auto) (0.0-6.0) /HPF
[2020-05-19] MEDS: ACETAMINOPHEN 325 MG TAB PO PRN ×2 (18:57→23:48)
[2020-05-20] MEDS ORDERED: IBUPROFEN 800 MG TAB PO PRN (00:21)
--- NOTE | 2020-05-20 07:51 | Progress Note ---
Assessment and Plan A: Readmission for chronic hypertension with superimposed preeclampsia, s/p on 05/02/20; s/p Magnesium sulfate for seizure prophylaxis for 24 hours Obesity P: Discharge home with follow up in 1 week for blood pressure check Subjective - Subjective Date of service: 05/20/20 Principal diagnosis: Chronic HTN with superimposed preeclampsia Interval history: Pt without complaints. No headache presently. Patient reports: appetite normal, voiding normally, pain well controlled, ambulating normally Objective - Vital Signs Latest vital signs: Vital Signs Temp Pulse Resp BP BP Pulse Ox 05/20/20 04:28 98.2 F 80 16 135/90 91 05/20/20 00:15 97.9 F 88 16 138/100 91 05/19/20 23:56 72 131/96 05/19/20 23:52 83 L 05/19/20 23:40 92 05/19/20 23:36 73 100 05/19/20 23:33 77 162/110 05/19/20 23:32 84 0 L 05/19/20 23:31 73 100 05/19/20 23:26 83 99 05/19/20 23:21 82 99 05/19/20 23:16 88 100 05/19/20 23:11 76 100 05/19/20 23:06 70 99 05/19/20 23:01 74 132/91 98 05/19/20 22:56 77 100 05/19/20 22:51 75 100 05/19/20 22:46 77 100 05/19/20 22:41 79 100 05/19/20 22:36 79 98 05/19/20 22:31 75 99 05/19/20 22:26 79 99 05/19/20 22:21 78 99 05/19/20 22:16 79 99 05/19/20 22:11 74 99 05/19/20 22:06 73 100 05/19/20 22:01 82 126/85 99 05/19/20 21:56 71 99 05/19/20 21:51 84 98 05/19/20 21:46 81 100 05/19/20 21:41 81 98 05/19/20 21:36 84 99 05/19/20 21:31 81 99 05/19/20 21:29 82 125/89 05/19/20 21:27 82 125/89 09/18/20 21:26 81 100 09/18/20 21:21 85 98 09/18/20 21:16 79 99 09/18/20 21:11 82 99 09/18/20 21:07 98.1 F 18 09/18/20 21:06 85 98 09/18/20 21:01 78 130/88 98 09/18/20 20:56 86 99 09/18/20 20:51 82 100 09/18/20 20:46 79 99 09/18/20 20:41 80 99 09/18/20 20:36 83 100 09/18/20 20:31 84 100 09/18/20 20:26 84 99 09/18/20 20:21 84 100 09/18/20 20:16 83 99 09/18/20 20:11 99 H 98 09/18/20 20:06 83 99 09/18/20 20:01 83 126/75 99 09/18/20 19:56 83 99 09/18/20 19:51 82 100 09/18/20 19:46 77 98 09/18/20 19:41 77 100 09/18/20 19:36 83 99 09/18/20 19:31 80 99 09/18/20 19:26 78 99 09/18/20 19:21 76 99 09/18/20 19:16 77 99 09/18/20 19:11 77 100 09/18/20 19:06 78 100 09/18/20 19:01 79 115/69 99 09/18/20 18:56 94 H 99 09/18/20 18:51 78 97 09/18/20 18:46 79 97 09/18/20 18:41 78 95 09/18/20 18:36 82 97 09/18/20 18:31 89 98 09/18/20 18:26 83 97 09/18/20 18:21 88 98 09/18/20 18:16 78 98 09/18/20 18:11 80 98 09/18/20 18:06 77 98 09/18/20 18:01 79 115/79 98 09/18/20 17:56 75 96 09/18/20 17:51 74 96 09/18/20 17:46 77 99 09/18/20 17:41 77 97 09/18/20 17:36 76 99 09/18/20 17:31 74 97 09/18/20 17:26 75 99 09/18/20 17:21 78 99 09/18/20 17:16 74 100 09/18/20 17:11 81 98 09/18/20 17:06 74 99 09/18/20 17:01 74 92/54 98 09/18/20 16:56 84 98 09/18/20 16:51 82 97 09/18/20 16:46 87 98 09/18/20 16:41 83 98 09/18/20 16:36 82 97 09/18/20 16:31 90 99 09/18/20 16:26 82 98 09/18/20 16:21 83 97 09/18/20 16:16 85 99 09/18/20 16:11 90 100 09/18/20 16:06 83 99 09/18/20 16:01 84 99 09/18/20 15:56 84 100 09/18/20 15:51 77 98 09/18/20 15:46 75 98 09/18/20 15:44 92 H 92 /18/20 15:41 88 97 09/18/20 15:36 79 98 09/18/20 15:31 74 98 09/18/20 15:26 75 98 09/18/20 15:21 75 99 09/18/20 15:16 76 100 09/18/20 15:11 77 98 09/18/20 15:06 81 98 09/18/20 15:01 78 116/66 100 09/18/20 14:56 80 98 09/18/20 14:51 77 100 09/18/20 14:46 96 H 100 09/18/20 14:41 89 100 09/18/20 14:36 95 H 99 09/18/20 14:31 94 H 100 09/18/20 14:26 95 H 100 09/18/20 14:21 72 100 09/18/20 14:16 74 100 09/18/20 14:11 73 99 09/18/20 14:06 72 100 09/18/20 14:01 69 135/79 99 09/18/20 13:56 76 98 09/18/20 13:51 64 99 09/18/20 13:46 68 99 09/18/20 13:41 73 100 09/18/20 13:36 69 99 09/18/20 13:31 70 100 09/18/20 13:26 66 100 09/18/20 13:21 73 99 09/18/20 13:16 72 98 09/18/20 13:11 77 98 09/18/20 13:06 76 99 09/18/20 13:01 71 125/92 100 09/18/20 12:56 74 99 09/18/20 12:51 88 99 09/18/20 12:46 76 100 09/18/20 12:41 73 99 09/18/20 12:36 79 98 09/18/20 12:31 70 99 09/18/20 12:26 77 99 09/18/20 12:21 70 99 09/18/20 12:16 69 99 09/18/20 12:11 70 99 09/18/20 12:06 70 98 09/18/20 12:01 79 136/94 100 09/18/20 11:56 91 H 97 09/18/20 11:51 74 98 09/18/20 11:46 72 98 09/18/20 11:41 69 99 09/18/20 11:36 74 99 09/18/20 11:31 81 99 09/18/20 11:26 72 100 09/18/20 11:21 77 99 09/18/20 11:16 76 99 09/18/20 11:11 75 100 09/18/20 11:06 76 99 09/18/20 11:01 90 102/62 99 09/18/20 10:56 73 99 09/18/20 10:51 69 99 09/18/20 10:46 73 98 09/18/20 10:41 74 98 09/18/20 10:36 75 99 09/18/20 10:31 76 100 09/18/20 10:26 70 100 09/18/20 10:21 76 99 09/18/20 10:16 76 100 09/18/20 10:11 75 99 09/18/20 10:06 80 100 09/18/20 10:01 88 122/61 99 09/18/20 10:00 80 138/83 09/18/20 09:56 85 99 09/18/20 09:51 77 100 09/18/20 09:46 75 99 09/18/20 09:41 73 99 09/18/20 09:36 67 99 09/18/20 09:31 71 99 05/19/20 09:26 68 98 05/19/20 09:21 68 99 05/19/20 09:16 69 100 05/19/20 09:11 79 99 05/19/20 09:06 71 99 05/19/20 09:01 70 138/83 100 05/19/20 08:56 76 99 05/19/20 08:51 71 99 05/19/20 08:46 77 99 05/19/20 08:41 74 99 05/19/20 08:36 76 99 05/19/20 08:31 80 99 05/19/20 08:26 81 100 05/19/20 08:21 68 99 05/19/20 08:16 68 99 05/19/20 08:11 69 99 05/19/20 08:06 68 100 05/19/20 08:01 66 147/91 100 05/19/20 07:56 68 99 Intake and Output 05/19/20 05/20/20 05/20/20 22:59 06:59 14:59 Intake Total 490 10 Output Total 1400 300 Balance -910 -290 Intake: IV 10 10 Right Antecubital 10 10 Oral 480 Output: Urine 1400 300 Indwelling Catheter 1400 Void 300 Other: Total, Intake Amount 240 Total, Output Amount 800 300 - Exam Breasts: Present: deferred Abdomen: Present: soft
--- NOTE | 2020-05-20 07:57 | Discharge Summary ---
Providers - Providers Date of Admission: 05/18/20 20:56 Date of discharge: 05/20/20 Attending physician: YUDITH HILLIARD Primary care physician: YUMIKO GAMEZ Hospitalization Reason for admission: other ( preeclampsia) Procedure details: IV magnesium sulfate Hospital course: Pt received antihypertensives and magnesium sulfate for seizure prophylaxis during her hospitalization. She will take previously prescribed labetalol 300 mg BID and follow up in one week for a blood pressure check. Condition at discharge: Stable Disposition: DC- TO HOME OR SELFCARE - Discharge Diagnoses (1) Chronic hypertension with superimposed preeclampsia Status: Acute Plan - Provider Discharge Summary Activity: routine, no sex for 6 weeks Diet: routine Instructions: routine Additional instructions: [] Smoking cessation referral if applicable(refer to patient education folder for contact #) [] Refer to [facility] Booklet Call your doctor immediately for: * Fever > 100.5 * Heavy vaginal bleeding ( >1 pad per hour) * Severe persistent headache * Shortness of breath * Reddened, hot, painful area to leg or breast * Drainage or odor from incision. * Keep incision clean and dry at all times and follow doctor's instructions regarding bathing/showering - Follow up plan Follow up: YUMIKO GAMEZ MD [Primary Care Provider] - 7 Days (Please call to schedule a BP check the week of May )
[2020-05-20 11:38] VITALS: BP 130/81
== END 2020-05-20 12:45 | disposition home or self-care (01) ==
LOC: ED 17:35 → LD 20:56 → OB 05-20 00:09
PROVIDERS: ADMIT Obstetrics & Gynecology; ATTEND Obstetrics & Gynecology
DX: O14.15 Severe pre-eclampsia, complicating the puerperium (principal); O16.5 Unspecified maternal hypertension, complicating the puerperium; Z79.82 Long term (current) use of aspirin
CPT/HCPCS: 36415; 80048; 80076; 81001; 83615; 83735; 85025; 85610; 85730; 87086; 96365; 96366; 96375; 96376; 99291; G0378; J3475; J7120